=== PATIENT | female | born 1960 | race Caucasian/White ===

== ENCOUNTER → 2019-06-09 | Outpatient (CLI) | payer OTHER ==
[~2019-06-09] MED LIST: BIOT25005 PO; COLLAGEN PO; FOLIC ACID PO; IBUP-1222 PO; TIZA2TAB2 PO; TURM1POW PO
== END | disposition home or self-care (01) ==
LOC: STAR 13:14
PROVIDERS: ATTEND Surgery
CPT/HCPCS: 93005

== ENCOUNTER 2019-06-25 07:34 | Day surgery (SDC) | payer OTHER ==
[~2019-06-25] VITALS: Ht 162.6 cm; Wt 50.3 kg
[2019-06-25 09:12] VITALS: BP 110/75
[2019-06-25] MEDS ORDERED: EPINEPHRINE 1 MG/ML, 1ML ONE (09:16)
[2019-06-25] MEDS ORDERED: BUPIVACAINE/PF 0.5% ONE (09:16)
[2019-06-25] MEDS ORDERED: LIDOCAINE 1%, 20ML ONE (09:20)
[2019-06-25] MEDS ORDERED: SODIUM BICARBONATE 4.0%, 5ML ONE (09:20)
[2019-06-25] MEDS ORDERED: LIDOCAINE 1%-EPI 1:100K, 20ML ONE (09:20)
[2019-06-25] MEDS ORDERED: SCOPOLAMINE PATCH, 1.5MG PATCH.TD72 TD ONE ×2 (10:04→11:17)
[2019-06-25] MEDS ORDERED: FENTANYL PF 100 MCG/2ML ONE (10:08)
[2019-06-25] MEDS ORDERED: MIDAZOLAM 1 MG/ML, 2ML ONE (10:08)
[2019-06-25] MEDS ORDERED: hydrALAzine 20 MG/ML, 1ML IV PRN (10:30)
[2019-06-25] MEDS ORDERED: KETOROLAC 30 MG/1 ML IV PRN (10:30)
[2019-06-25] MEDS ORDERED: ACETAMINOPHEN 325 MG TABLET PO PRN (10:30)
[2019-06-25] MEDS ORDERED: HYDROmorphone 2 MG/ML, 1ML IVPush PRN (10:30)
[2019-06-25] MEDS ORDERED: MEPERIDINE/PF 25MG/0.5ML IVPush PRN (10:30)
[2019-06-25] MEDS ORDERED: ALBUTEROL SULFATE 2.5 MG/3 ML NPPB PRN (10:30)
[2019-06-25] MEDS ORDERED: PROMETHAZINE 25 MG/ML, 1ML IV PRN (10:30)
[2019-06-25] MEDS ORDERED: LABETALOL 5MG/ML, 20ML IV PRN (10:30)
[2019-06-25] MEDS ORDERED: DIAZEPAM 5 MG/ML, 2ML IVPush PRN (10:30)
[2019-06-25] MEDS ORDERED: OXYcodone 5 MG/5 ML ORAL.SOL UDC PO PRN (10:30)
[2019-06-25] MEDS ORDERED: FENTANYL PF 100 MCG/2ML IV PRN (10:30)
[2019-06-25] MEDS ORDERED: PROMETHAZINE 25 MG/ML, 1ML ONE (12:15)
[2019-06-25] MEDS ORDERED: CEFAZOLIN 1,000 MG ONE (14:49)
[2019-06-25] MEDS ORDERED: PROPOFOL 10 MG/ML, 20ML ONE (14:49)
[2019-06-25] MEDS ORDERED: DEXAMETHASONE 4 MG/ML, 1ML ONE (14:49)
[2019-06-25] MEDS ORDERED: SUCCINYLCHOLINE 20 MG/ML, 10ML ONE (14:49)
[2019-06-25] MEDS ORDERED: ONDANSETRON 2MG/ML, 2ML ONE (14:49)
== END 2019-06-25 14:45 | disposition home or self-care (01) ==
LOC: CFH 07:34 → EDSTATUS 10:00 → OUT 14:45
PROVIDERS: ATTEND Surgery
DX: R92.0 Mammographic microcalcification found on diagnostic imaging of breast (principal); D17.1 Benign lipomatous neoplasm of skin and subcutaneous tissue of trunk; D17.22 Benign lipomatous neoplasm of skin and subcutaneous tissue of left arm; F15.90 Other stimulant use, unspecified, uncomplicated; Z72.89 Other problems related to lifestyle; Z87.891 Personal history of nicotine dependence
CPT/HCPCS: 19281; 19301; 21931; 24071; 76098; 88305; 88307; J0171; J0330; J0690; J1100; J2250; J2405; J2550; J2704; J3010; J3490